=== PATIENT | male | born 1970 | race Caucasian/White ===

== ENCOUNTER 2020-09-12 16:09 | Emergency (ER) | payer MEDICAID, SELFPAY ==
[2020-09-12 16:11] VITALS: BP 148/63; PULSE 93; RESP 18; TEMP 36.7; O2SAT 98; BMI 27.8
== END 2020-09-12 16:53 | disposition left against medical advice (07) ==
LOC: HO.ED 16:53
PROVIDERS: Emergency Provider Emergency Medicine
DX: S99.911A Unspecified injury of right ankle, initial encounter (principal); X50.1XXA Overexertion from prolonged static or awkward postures, initial encounter; Y93.01 Activity, walking, marching and hiking; Y92.414 Local residential or business street as the place of occurrence of the external cause; Y99.9 Unspecified external cause status
CPT/HCPCS: 99282

== ENCOUNTER 2020-10-04 14:05 | Emergency (ER) | payer MEDICAID, SELFPAY ==
--- NOTE | ~2020-10-04 | XR_ITS ---
EXAMINATION: XR ANKLE, RIGHT CLINICAL INFORMATION: Sprain. COMPARISON: None TECHNIQUE: AP, lateral, and mortise views of the right ankle. FINDINGS: There is bimalleolar soft tissue swelling. No visible acute fracture, dislocation or subluxation seen. The ankle mortise and subtalar joints are normal. The soft tissues are normal. There is a small calcaneal heel and retrocalcaneal enthesophyte. XR/XR ankle RT 2V IMPRESSION: Small calcaneal helical and retrocalcaneal enthesophyte. Bimalleolar soft tissue swelling. No visible acute fracture or dislocation seen.
[2020-10-04 14:08] VITALS: BP 144/92; PULSE 111; RESP 20; TEMP 36.6; O2SAT 97; BMI 25.1
--- NOTE | 2020-10-04 16:57 | ED_ITS ---
HPI - Skin/Abscess/Foreign Bdy General Chief complaint: Skin/Abscess/Foreign Body Stated complaint: rash Time Seen by Provider: 10/04/20 15:40 Source: patient Mode of arrival: ambulatory History of Present Illness HPI narrative: 50-year-old male with no significant past medical history presenting to the ED complaining of rash noted to bilateral arms and face x multiple years worsening x1 week. Also reports right ankle pain s/p twisting injury x a few weeks. Reports rash is itchy, painful, cracking/burning. Denies new/recent exposures, new medications, fever, chills, recent travel, tick/insect bites complaint: rash Related Data Previous Rx's Medication Instructions Recorded prednisone 60 mg PO DAILY 10 Days #30 tab 10/04/20 Allergies Allergy/AdvReac Type Severity Reaction Status Date / Time No Known Allergies [NKA] Allergy Unknown NONE Unverified 03/26/20 14:58 Review of Systems Review of Systems: Constitutional: No Fever, No Chills Musculoskeletal: +joint pain, No Myalgias, +Joint Swelling Skin: +rash Neuro: No Weakness, No Numbness, No Paresthesias Yes all other systems are reviewed and are negative [facility] Past Medical History Attestation statement: The following information was validated with the patient. Medical History (Updated 10/04/20 @ 17:00 by CRISTINA Abraham) No known health problems Social History Social History Advance Directives: No Advance Directives Information Provided: No Physical Exam Vital Signs: Vital Signs: Last Vital Signs Temp 97.9 F 10/04/20 14:08 Pulse 111 H 10/04/20 14:08 Resp 20 10/04/20 14:08 BP 144/92 H 10/04/20 14:08 Pulse Ox 97 10/04/20 14:08 Body Mass Index 25.1 Const: General: cooperative and healthy appearing Orientation/consciousness: patient oriented x3 Limitations: no limitations HENMT: Other: No mucous membrane involvement Head: Yes normal to inspection Ears: hearing grossly normal bilaterally General nose exam: Normal external nose present Face and sinus: Yes normal facial exam Mouth: Normal oral and palatal mucosa present Eyes: General: appearance normal, both eyes and all related structures Pupils: Equal, round and reactive pupils present EOM: EOMs intact bilaterally Neck: Neck: Yes normal visual inspection and Yes no meningeal signs Resp: Effort & Inspection: normal respiratory effort Skin: Other: + dry cracked scaly plaque-like rash noted to bilateral upper extremities, neck, ears, and face. No superimposed cellulitis, no fluctuance/induration, no drainage No palm or sole involvement Neuro: General: patient oriented x3 and no meningeal signs Cranial nerves: Yes Equal, round and reactive pupils present Gait exam (Neuro): Normal gait present Extrem: Other: Right ankle with mild swelling, no notable deformity. Tender to palpation. Range of motion/NV intact Course Course Course Narrative: -case discussed with Dr. Barber who also evaluated patient, plan to DC with p.o. prednisone and dermatology follow-up XR ankle RT 2V IMPRESSION: Small calcaneal helical and retrocalcaneal enthesophyte. Bimalleolar soft tissue swelling. No visible acute fracture or dislocation seen. >> patient placed in Aircast. MDM - Skin/Abscess/Foreign Bdy MDM Narrative Medical decision making narrative: 50-year-old male with no significant past medical history presenting to the ED complaining of rash noted to bilateral arms and face x multiple years worsening x1 week. Also reports right ankle pain s/p twisting injury x a few weeks. On exam mildly tachycardic, physical exam as above. Rash consistent with psoriasis/atopic dermatitis. Likely ankle sprain. Rule out fracture Plan: X-rays Discharge Plan Discharge Clinical Impression: Psoriasis Ankle sprain Qualifiers: Encounter type: initial encounter Involved ligament of ankle: unspecified ligament Laterality: right Qualified Code(s): S93.401A - Sprain of unspecified ligament of right ankle, initial encounter Patient Disposition: Home, Self-Care Instructions: Psoriasis (ED) Additional Instructions: You have atopic dermatitis/psoriasis, prednisone is a steroid, take as prescribed It is crucial that you follow-up with a biomedical service engineer as soon as possible, call for next appointment Your ankle x-ray did not show any fracture or dislocation, where air cast as needed for comfort, bear weight as tolerated, ice and elevate her ankle, take Tylenol Motrin for pain If your rash begins to look infected, is red, you have fever, there is drainage from the area return to the ED Prescriptions: New prednisone 20 mg tablet 60 mg PO DAILY 10 Days Qty: 30 RF: 0 Referrals: Leonel Mckeon MD [Physician] - 2 days Genaro Gonzalez MD [Physician] - 2 days Landon Austin MD [Physician] - 2 days Tabitha Mike PA-C [Physician Perinatal Director] - 2 days Edelmira Coelho PA [Physician Perinatal Director] - 2 days Ana Abraham MD [Physician] - 2 days
[2020-10-04] MEDS: predniSONE 20 MG TABLET 60 MG PO (17:01)
== END 2020-10-04 17:20 | disposition home or self-care (01) ==
PROVIDERS: Emergency Provider Emergency Medicine Emergency Medical Services
DX: L40.9 Psoriasis, unspecified (principal); M25.571 Pain in right ankle and joints of right foot; Z79.899 Other long term (current) drug therapy
CPT/HCPCS: 73600; 99283

== ENCOUNTER 2020-10-17 10:57 | Emergency (ER) | payer MEDICAID, SELFPAY ==
[2020-10-17 11:05] VITALS: BP 117/80; PULSE 100; RESP 16; TEMP 36.9; O2SAT 96; BMI 24.3
--- NOTE | 2020-10-17 11:40 | ED.SKABFB ---
HPI - Skin/Abscess/Foreign Bdy General Chief complaint: Skin/Abscess/Foreign Body Stated complaint: rash Time Seen by Provider: 10/17/20 11:13 Source: patient Mode of arrival: ambulatory Limitations: no limitations History of Present Illness HPI narrative: 50 y/o male with history of eczema presenting with severe skin burning, itching and dryness to his bilateral arms, face and ears for the last 1 week. He was recently seen here on 10/04 and prescribed predisone for 10 days. He reports the steroids cleared his skin up but as soon as he stopped taking them, the rash came back and has been worsening. He reports severe burning of his ears with cracked skin and watery discharge. No fever or chills. Related Data Previous Rx's Medication Instructions Recorded prednisone 60 mg PO DAILY 10 Days #30 tab 10/04/20 hydrocortisone 1 appl TOPICAL BID PRN #20 g 10/17/20 prednisone 10 mg PO PER PKG DIR #48 ea 10/17/20 prednisone 60 mg PO DAILY #30 tab 10/17/20 Allergies Allergy/AdvReac Type Severity Reaction Status Date / Time No Known Allergies [NKA] Allergy Unknown NONE Unverified 03/26/20 14:58 [facility] Past Medical History Medical History (Updated 10/17/20 @ 11:57 by CRISTINA Beebe) Acute eczema No known health problems Social History Social History Advance Directives: No Physical Exam Vital Signs: Vital Signs: Last Vital Signs Temp 98.4 F 10/17/20 11:05 Pulse 100 10/17/20 11:05 Resp 16 10/17/20 11:05 BP 117/80 10/17/20 11:05 Pulse Ox 96 10/17/20 11:05 Body Mass Index 24.3 Appearance: Alert. Oriented X3. Appears uncomfortable. HEENT: severe dry, scaly skin all over face and bilateral ears with tenderness, slight yellow crusting no prurulent drainage. CVS: Normal heart rate and rhythm. Pulses normal. Respiratory: No respiratory distress. Lungs CTAB Extremities: bilateral upper extremities with dry, scaly rash to lower arms on dorsal surfaces Neuro: Oriented X 3. No motor deficit. No sensory deficit. Course Course Course Narrative: 50 y/o male presenting with worsening diffuse, dry rash on the extensor surfaces of his arms, face and ears. This is consistent with psoriasis. No evidence of superimposed bacterial infection. He previously responded to prednisone burst but symptoms recurred when steroids finished. Case was d/w Dr. Barber who recommends repeat prednisone burst followed by tapering dose. This was discussed with the patient as well as the importance of follow up with PCP and Derm. He expressed understanding. Stable for d/c. Discharge Plan Discharge Clinical Impression: Psoriasis Patient Disposition: Home, Self-Care Instructions: Psoriasis (ED) Additional Instructions: Take the burst dose of Prednisone 60 mg once per day for the next 10 days - start tomorrow because you were given the 1st dose today in the ED. Once you are done with this, start the Prednisone taper per package instructions to slowly taper down the dose. Use the topical cream as needed for itching and burning. Take Benadryl 25-50 mg every 6 hours as needed for itching. You MUST follow up with a doctor, specifically a Dermatology for further treatment. Call the Radio Operator listed below Monday morning. Call the Primary Care doctor provided to you to arrange an appointement. If you have worsening symptoms or develop a fever come back to the ER for futher evaluation. Prescriptions: New prednisone 20 mg tablet 60 mg PO DAILY Qty: 30 RF: 0 prednisone 10 mg tablets,dose pack 10 mg PO PER PKG DIR Qty: 48 RF: 0 hydrocortisone 2.5 % ointment 1 appl topical BID PRN (Reason: itching) Qty: 20 RF: 3 No Action prednisone 20 mg tablet 60 mg PO DAILY 10 Days Qty: 30 RF: 0 Referrals: Tabitha Mike PA-C [Physician Shot Core Drill Operator Helper] - 2 days (severe psoriasis )
[2020-10-17] MEDS: predniSONE 20 MG TABLET 60 MG PO (12:01)
[2020-10-17] MEDS: diphenhydrAMINE HCL 25 MG TABLET PO (12:01)
[2020-10-17] MEDS: Hydrocortisone 1 % Ointment 28.35 GM TUBE 1 APPL TOPICAL (12:42)
== END 2020-10-17 12:46 | disposition home or self-care (01) ==
PROVIDERS: Emergency Provider Emergency Medicine Emergency Medical Services
DX: L40.9 Psoriasis, unspecified (principal)
CPT/HCPCS: 99283; Q0163

== ENCOUNTER 2020-11-19 18:46 | Emergency (ER) | payer MEDICAID, SELFPAY | END 2020-11-19 21:10 | disposition left against medical advice (07) | PROVIDERS: Emergency Provider Emergency Medicine | DX: S99.919A Unspecified injury of unspecified ankle, initial encounter (principal); X58.XXXA Exposure to other specified factors, initial encounter; Y93.9 Activity, unspecified; Y92.9 Unspecified place or not applicable; Y99.9 Unspecified external cause status ==

== ENCOUNTER 2020-11-29 22:24 | Emergency (ER) | payer MEDICAID, SELFPAY ==
[2020-11-29 22:57] VITALS: BP 145/95; PULSE 113; RESP 16; TEMP 36.7; O2SAT 94; BMI 26.6
== END 2020-11-30 01:01 | disposition left against medical advice (07) ==
PROVIDERS: Emergency Provider Emergency Medicine
DX: R22.43 Localized swelling, mass and lump, lower limb, bilateral (principal)
CPT/HCPCS: 99281; 99282

== ENCOUNTER 2021-02-18 12:11 | Emergency (ER) | payer MEDICAID, SELFPAY ==
[2021-02-18 12:12] VITALS: BP 121/86; PULSE 98; RESP 16; TEMP 36.7; O2SAT 95; BMI 23.7
--- NOTE | 2021-02-18 13:55 | ED_ITS ---
HPI - Skin/Abscess/Foreign Bdy General Chief complaint: Skin/Abscess/Foreign Body Stated complaint: med refill Time Seen by Provider: 02/18/21 13:44 Source: patient Mode of arrival: ambulatory Limitations: no limitations History of Present Illness HPI narrative: 50-year-old male with a past medical history of psoriasis here with complaints of psoriasis flare with worsening rash and itching since yesterday. Patient tells me he did a prednisone taper starting February 02 and had significant improvement with this. He has an upcoming appointment with his primary care doctor on March 05. He is hoping to get a referral to see a security consultant. No fevers, chills, redness or drainage. Related Data Previous Rx's Medication Instructions Recorded hydrocortisone 2.5 % topical 1 appl TOPICAL BID PRN #20 g 10/17/20 ointment prednisone 10 mg tablets in a dose 10 mg PO PER PKG DIR #48 ea 10/17/20 pack prednisone 20 mg tablet 60 mg PO DAILY #30 tab 10/17/20 prednisone 20 mg tablet 20 mg PO DAILY #20 tab 12/02/20 cephalexin 500 mg capsule 500 mg PO QID 7 Days #28 cap 02/02/21 prednisone 10 mg tablet 10 mg PO .COMPLEX #45 tab 02/02/21 prednisone 20 mg tablet 60 mg PO DAILY 10 Days #30 tab 02/02/21 prednisone 10 mg tablets in a dose See Taper PO PER PKG DIR #30 ea 02/18/21 pack Allergies Allergy/AdvReac Type Severity Reaction Status Date / Time No Known Allergies [NKA] Allergy Unknown NONE Verified 12/02/20 13:39 Review of Systems Review of Systems: Yes all other systems are reviewed and are negative Constitutional: Constitutional: Reports no additional constitutional complaints, Denies body ache(s), Denies chills, Denies fever(s), Denies headache(s) and Denies weakness Eyes: Eyes: Reports no additional eye complaints and Denies change in vision ENT: Reports system reviewed and no additional complaints, except as documented, Denies dizziness, Denies headache(s), Denies nasal congestion, Denies nasal discharge and Denies neck pain Cardiovascular: Cardiovascular: Reports no additional cardiovascular complaint s, Denies chest pain, Denies leg edema and Denies dyspnea Respiratory: Respiratory: Reports no additional respiratory complaints, Denies cough and Denies dyspnea Gastrointestinal: Gastrointestinal: Reports no additional gastrointestinal complaints, Denies abdominal pain, Denies diarrhea, Denies nausea and Denies vomiting Genitourinary: Genitourinary: Denies urinary incontinence Musculoskeletal: Musculoskeletal: Reports no additional musculoskeletal complaints, Denies back pain, Denies arthralgias, Denies joint swelling, Denies neck pain, Denies numbness and Denies tingling Integumentary/Breasts: Skin/Breast: Reports system reviewed and no additional complaints, except as docu and Reports rash Neurologic: Reports system reviewed and no additional complaints, except as documented, Denies Abnormal speech present, Denies dizziness, Denies headache(s), Denies numbness, Denies tingling and Denies weakness PMFSH Past Medical History Attestation statement: The following information was validated with the patient. Source: old records reviewed and nursing notes reviewed Medical History Acute eczema No known health problems Psoriasis Surgical History No pertinent past surgical history Family History Family History Mother No problems noted. Father No problems noted. Social History Social History Alcohol intake: current Alcohol intake frequency: a few times a week Patient Tobacco Use Status: Current everyday Tobacco user Tobacco use type: Cigarette Cigarettes Per Day: 20 Years Smoked: 20 Second Hand Smoke Exposure: Yes Advance Directives: No Advance Directives Information Provided: Yes Physical Exam Vital Signs: Vital Signs: Last Vital Signs Temp 98.0 F 02/18/21 12:12 Pulse 98 02/18/21 12:12 Resp 16 02/18/21 12:12 BP 121/86 02/18/21 12:12 Pulse Ox 95 02/18/21 12:12 Body Mass Index 23.7 Const: General: cooperative, healthy appearing, comfortable and no acute distress Orientation/consciousness: patient oriented x3 Limitations: no limitations HENMT: Head: Yes normal to inspection Ears: hearing grossly normal bilaterally General nose exam: Normal external nose present Face and sinus: Yes normal facial exam Mouth: Normal oral and palatal mucosa present Throat: Yes posterior oropharynx normal Eyes: General: appearance normal, both eyes and all related structures Pupils: Equal, round and reactive pupils present Neck: Neck: Yes normal visual inspection Chest: Chest palpation & inspection: normal inspection of the chest Resp: Effort & Inspection: normal respiratory effort Auscultation: clear to auscultation bilaterally Cardio: Rate: regular rate Rhythm: regular rhythm Peripheral pulses: Peripheral pulses 2+ throughout GI: Inspection: Yes normal to inspection Palpation (GI): Soft to palpation and nontender Auscultation: normal bowel sounds Back/Spine/Pelvis: Thoracic/Lumbar Spine: thoracic and lumbar spine normal to inspection Skin: Other: Scaling plaque like lesions noted over the upper extremities over the extensor surfaces and over the dorsal forearms. Similar appearing rash on the feet. General skin exam: no rashes or lesions noted Neuro: General: patient oriented x3, no focal motor deficits and normal sensation to monofilament Cranial nerves: Yes Equal, round and reactive pupils present Cognition (Neuro): normal cognition Speech: No Abnormal speech present Gait exam (Neuro): Normal gait present Motor exam (neuro): 5/5 motor strength present throughout Extrem: General: Yes normal to inspection Course Course Course Narrative: 50-year-old male here with a psoriasis flare. Has improved with prednisone passed is requesting this. Upcoming appointment with his primary care doctor and is hoping to get a Dermatology referral. . His insurance requires one. Will give brief prednisone course. Recommended topical the patient declined. Reviewed worrisome signs and symptoms of when to return to the emergency department. Comfortable discharge home. MDM - Skin/Abscess/Foreign Bdy Medical Records Attestation: I reviewed the patient's medical records. Lab Data Attestation: I reviewed the patient's lab results. Discharge Plan Discharge Clinical Impression: Psoriasis Patient Disposition: Home, Self-Care Instructions: Psoriasis (ED) Additional Instructions: Keep appt for PCP 03/05 Prescriptions: New prednisone 10 mg tablets,dose pack See Taper mg PO PER PKG DIR Qty: 30 RF: 0 No Action prednisone 20 mg tablet 60 mg PO DAILY Qty: 30 RF: 0 prednisone 10 mg tablets,dose pack 10 mg PO PER PKG DIR Qty: 48 RF: 0 hydrocortisone 2.5 % ointment 1 appl topical BID PRN (Reason: itching) Qty: 20 RF: 3 prednisone 20 mg tablet 20 mg PO DAILY Qty: 20 RF: 0 prednisone 20 mg tablet 60 mg PO DAILY 10 Days Qty: 30 RF: 0 cephalexin 500 mg capsule 500 mg PO QID 7 Days Qty: 28 RF: 0 prednisone 10 mg tablet 10 mg PO .COMPLEX Qty: 45 RF: 0 Referrals: Physician,Unknown [Primary Care Provider] - 2 days Interventions: ED Discharge Assessment Last Done: 02/18/21 14:01 Discharge Date/Time: 02/18/21 14:02
== END 2021-02-18 14:02 | disposition home or self-care (01) ==
PROVIDERS: Emergency Provider Emergency Medicine
DX: L40.9 Psoriasis, unspecified (principal); F17.210 Nicotine dependence, cigarettes, uncomplicated
CPT/HCPCS: 99283

== ENCOUNTER 2021-04-15 08:15 | Outpatient (REF) | payer MEDICAID, SELFPAY ==
[2021-04-15 08:41] LABS: MANUAL DIFF FLAG NO
[2021-04-15 08:56] LABS: Basophils Absolute Auto 0.1 X10*3/uL (0.0-0.2); Basophils Percent Auto 0.5 % (0-2); Eosinophils Absolute Auto 0.4 X10*3/uL (0.0-0.4); Hematocrit 43.7 % (42-52); Imm Gran Abs Auto 0.04 X10*3/uL (0.00-0.03); Imm Gran Pct Auto 0.4 % (0.0-0.4); Lymphocytes Percent Auto 18.8 % (20-40); Mean Corpuscular Hemoglobin 32.4 pg (27.0-33.0); Mean Corpuscular Volume 101.2 fL (80-98); Mean Platelet Volume 9.4 fL (9.4-12.4); Monocytes Percent Auto 9.1 % (2-11); Neutrophils Absolute Auto 7.1 X10*3/uL (2.0-8.3); Neutrophils Percent Auto 67.2 % (45-73); Platelet Count 301 X10*3/uL (160-400); Red Blood Count 4.32 X10*6/uL (4.60-5.80); Red Cell Distribution Width 15.3 % (11.0-16.0); White Blood Count 10.6 X10*3/uL (4.8-10.8)
[2021-04-15 09:22] LABS: Alanine Aminotransferase 10 U/L (0-40); Albumin Level 3.8 g/dL (3.5-5.0); Alkaline Phosphatase 111 U/L (39-117); Anion Gap 10 (12-20); Aspartate Amino Transferase 12 U/L (5-37); Bilirubin Total 0.6 mg/dL (0.0-1.0); Blood Urea Nitrogen 8 mg/dL (9-16); Calcium 9.3 mg/dL (8.4-10.2); Carbon Dioxide 31 mmol/L (22-29); Chloride 105 mmol/L (96-108); Cholesterol 147 mg/dL; Estimated Glomerular Filt Rate > 60; Glucose Fasting 126 mg/dL (60-99); HDL Cholesterol 24 mg/dL; LDL Cholesterol Calculated 90 mg/dl; Potassium 4.9 mmol/L (3.3-5.1); Sodium 141 mmol/L (135-145); Total Protein 6.6 g/dL (6.5-8.0); Triglycerides 168 mg/dL
== END 2021-04-15 08:16 | disposition home or self-care (01) ==
LOC: HO.LAB 08:15
PROVIDERS: PCP Internal Medicine; Visit Provider Internal Medicine
DX: Z00.00 Encounter for general adult medical examination without abnormal findings (principal); E11.9 Type 2 diabetes mellitus without complications
CPT/HCPCS: 36415; 80053; 80061; 85025

== ENCOUNTER 2023-03-03 10:22 | Outpatient (AMB) | payer OTHER, SELFPAY ==
--- NOTE | 2023-03-03 10:25 | MHC.PC.OV ---
Vital Signs 03/03/23 10:27 Height 5 ft 11 in Weight 207 lb 3.752 oz BMI 28.9 BP 110/78 Blood Pressure Location Lt brachial Position Sitting Pulse 97 Pulse Source Pulse Oximeter Pulse Oximetry (%) 96 Oxygen Delivery Method Room Air Intake Visit Reasons: Rash on both arms/hands Intake Note: Patient is here today for rash on both arms and fingers Business Analyst Project Manager Required: No Special Deputy Sheriff: Not Required per policy Accompanied by: Self / Same As Patient Allergies No Known Allergies [NKA] Allergy (Unknown, Verified 03/03/23 10:27) NONE Tobacco use date assessed: 03/03/23 Dental Screening Dental Screen Date: 03/03/23 Did you have a dental visit in the last 12 months?: No Did you have a dental problem in the last 6 months where you did not have access to dental care?: No Was dental information given to patient?: No HPI Rash on both arms/hands HPI Details recurrent hand dermatitis PFSH Medical History (Updated 01/25/22 @ 10:18 by Wade Johnston MD) Acute eczema No known health problems Psoriasis Surgical History (Updated 03/03/23 @ 10:32 by DIANA Sal) History of foot surgery No pertinent past surgical history Family History Mother No problems noted. Father No problems noted. Social History (Updated 03/03/23 @ 10:33 by DIANA Sal) Housing: House (Living with his brother) Alcohol intake: current Alcohol intake frequency: does not drink Patient Tobacco Use Status: Current everyday Tobacco user Tobacco use type: Cigarette Cigarette Packs Per Day: 0.5 Cigarettes Per Day: 10 Years Smoked: 20 e-Cigarette/Vaping Use: Never Used Second Hand Smoke Exposure: Yes service: No Current occupational status: unemployed Cognitive needs: Yes (croches) Hearing needs: No Vision needs: Yes (reading glasses) Questionnaire PHQ-9 Over the last 2 weeks, how often have you been bothered by any of the following problems? 1. Little interest or pleasure in doing things: several days 2. Feeling down, depressed, or hopeless: several days 3. Trouble falling or staying asleep, or sleeping too much: nearly every day 4. Feeling tired or having little energy: nearly every day 5. Poor appetite or overeating: not at all 6. Feeling bad about yourself - or that you are a failure or have let yourself or your family down: not at all 7. Trouble concentrating on things, such as reading the newspaper or watching television: not at all 8. Moving or speaking so slowly that other people could have noticed. Or the opposite - being so fidgety or restless that you have been moving around a lot more than usual: not at all 9. Thoughts that you would be better off or of hurting yourself in some way: not at all Total score: 8 Source: Developed by Drs. Agapito Emery, Tammy Kang, Ervin Thompson and colleagues, with an educational cherri from [employer]. Thrive Questionnaire Date Thrive assessed: 03/03/23 I am a: Patient What is your living situation today?: I have a steady place to live Within the past 12 months, did the food you bought not last and you didn't have the money to get more?: Never true Within the past 12 months, did you worry whether your food would run out before you got money to buy more?: Never true Do you have trouble paying for medicines?: Yes Do you have trouble getting transportation to medical appointments?: No Do you have trouble paying your heating and electricity bill?: No Do you have trouble taking care of your child, family member or friend?: No Do you have trouble with day-to-day activities such as bathing, preparing meals, shopping, managing finances, etc.?: No Are you currently unemployed and looking for a job?: No Are you interested in more education?: No Please select the resources that you would like help with: Paying for medicine AUDIT C Alcohol Use Questionnaire (AUDIT-C) 1. How often do you have a drink containing alcohol?: Never 2. How many drinks containing alcohol do you have on a typical day when you are drinking?: 1 or 2 Total Score: 0 DEDRICK-7 AMB Questionnaire DEDRICK-7 Date DEDRICK - 7 assessed: 03/03/23 Feeling nervous, anxious, or on edge: 2 = More than half the days Not being able to stop or control worryin = Not at all Worrying too much about different things: 0 = Not at all Trouble relaxin = Several days Being so restless that it is hard to sit still: 3 = Nearly every day Becoming easily annoyed or irritable: 0 = Not at all Feeling afraid as if something awful might happen: 0 = Not at all Total DEDRICK-7 score (0-4 normal; 5-9 mild; 10-14 moderate; 15-21 severe): 6 Source: Developed by Drs. Agapito Emery, Tammy Kang, Ervin Thompson and colleagues, with an educational cherri from [employer]. Review of Systems Const Denies chills, Denies headache(s) and Denies weight loss ENT Denies headache(s) Card Denies chest pain, Denies syncope, Denies irregular heart rhythm and Denies dyspnea Resp Denies chest congestion, Denies cough and Denies dyspnea GI Denies abdominal pain, Denies change in stool character, Denies nausea and Denies vomiting Musc Denies deformity and Denies joint swelling Neuro Denies syncope and Denies headache(s) Physical exam (Primary Care) Vital Signs: Last Vital Signs Pulse 97 03/03/23 10:27 BP 110/78 03/03/23 10:27 Pulse Ox 96 03/03/23 10:27 Oxygen Delivery Method Room Air 03/03/23 10:27 BMI result Body Mass Index 28.9 Tobacco/Smoking Status: Tobacco use Status Tobacco use date assessed 03/03/23 03/03/23 10:36 Patient Tobacco Use Status Current everyday Tobacco 03/03/23 10:36 Tobacco use type Cigarette 03/03/23 10:36 e-Cigarette/Vaping Use Never Used 03/03/23 10:36 PHQ-9: PHQ-9 Score PHQ-9: Total score 8 03/03/23 10:36 Thrive Assessment: Date of Thrive Assessment Date Thrive assessed 03/03/23 03/03/23 10:36 Const General: cooperative, comfortable and no acute distress HENMT Head: Yes normal to inspection Eyes General: appearance normal, both eyes and all related structures Neck Neck: Yes normal visual inspection Skin Other: bilat hand dermatitis Assessment and Plan Assessment & Plan (1) Hand dermatitis: Code(s): L30.9 - Dermatitis, unspecified Plan: refill rx Medications: Changed From betamethasone dipropionate 0.05% topical BID PRN To betamethasone dipropionate 0.05% 1 appl topical BID PRN 45 grams 2RF rash Coding Level of Care Code Est Pt Level 3 (34244) Diagnoses Hand dermatitis L30.9
[2023-03-03 10:27] VITALS: BP 110/78; PULSE 97; O2SAT 96; BMI 28.9
== END 2023-03-03 11:12 | disposition home or self-care (01) ==
PROVIDERS: PCP Internal Medicine; Visit Provider Internal Medicine
DX: L30.9 Dermatitis, unspecified (principal)
CPT/HCPCS: 99213

== ENCOUNTER 2024-10-29 11:25 | Outpatient (AMB) | payer OTHER, SELFPAY ==
[2024-10-29 11:29] VITALS: BP 120/84; PULSE 92; RESP 14; TEMP 36.9; O2SAT 97; BMI 26.7
--- NOTE | 2024-10-29 11:29 | MHC.PC.OV ---
Vital Signs 10/29/24 11:29 Height 5 ft 11 in Weight 191 lb 3.2 oz BMI 26.7 BP 120/84 Blood Pressure Location Lt brachial Position Sitting Respiration 14 Pulse 92 Pulse Source Pulse Oximeter Temp 98.5 F Temp Source Oral Pulse Oximetry (%) 97 Oxygen Delivery Method Room Air Intake Visit Reasons: annual exam/humza DR Johnston Information Systems Administrator Required: No Accompanied by: Self / Same As Patient Allergies No Known Allergies [NKA] Allergy (Unknown, Verified 10/29/24 11:43) NONE Medication List - Last Reconciled 10/29/24 by CHRISTY Smith methadone 10 mg PO DAILY Tobacco use date assessed: 10/29/24 Dental Screening Dental Screen Date: 10/29/24 Did you have a dental visit in the last 12 months?: No Did you have a dental problem in the last 6 months where you did not have access to dental care?: No Was dental information given to patient?: No HPI annual exam/humza DR Johnston HPI Details The patient is here for annual physical visit and to transition care from Dr. 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 The knee pain began approximately six to seven months ago after using a cane to support a previously injured ankle, leading to increased strain on the left knee. The pain and swelling of the knee have progressively worsened, severely impacting the patient's mobility and daily activities. Initial follow-up was delayed due to the prison of the previous physician, resulting in the current assessment being postponed for four months. The patient identifies worsening pain with continuous usage of the knee. The patient also experiences recurrent psoriasis, notably on the left elbow, hands, and occasionally the face. The condition is exacerbated by heat exposure. Additionally, there is a report of shortness of breath correlated with decreased physical activity due to knee immobility. The patient continues to smoke tobacco despite efforts to reduce consumption. There are no other reported respiratory conditions, except for some morning coughing up secretion stuck in throat likely related to smoking. The patient is a candidate for lung screening-will refer him to Thoracic. [facility] Medical History (Updated 10/29/24 @ 23:19 by CHRISTY Smith) Psoriasis Acute eczema No known health problems Surgical History History of foot surgery Family History Mother No problems noted. Father No problems noted. Social History Housing: House Alcohol intake: current Alcohol intake frequency: does not drink Patient Tobacco Use Status: Current everyday Tobacco user Tobacco use type: Cigarette Cigarette Packs Per Day: 0.5 Cigarettes Per Day: 10 Years Smoked: 20 e-Cigarette/Vaping Use: Never Used Second Hand Smoke Exposure: Yes service: No Current occupational status: disabled Cognitive needs: Yes (croches) Hearing needs: No Vision needs: Yes (Reading glasses) Questionnaire PHQ-9 Over the last 2 weeks, how often have you been bothered by any of the following problems? 1. Little interest or pleasure in doing things: not at all 2. Feeling down, depressed, or hopeless: several days 3. Trouble falling or staying asleep, or sleeping too much: not at all 4. Feeling tired or having little energy: several days 5. Poor appetite or overeating: several days 6. Feeling bad about yourself - or that you are a failure or have let yourself or your family down: not at all 7. Trouble concentrating on things, such as reading the newspaper or watching television: not at all 8. Moving or speaking so slowly that other people could have noticed. Or the opposite - being so fidgety or restless that you have been moving around a lot more than usual: not at all 9. Thoughts that you would be better off or of hurting yourself in some way: not at all Total score: 3 Depression Screening Interpretation: Negative Depression Screening Done: Yes 82128 - PHQ-9 Billing: Yes Source: Developed by Tammy Moses.W. Jorge Luis, Ervin Thompson and colleagues, with an educational cherri from [employer]. Thrive Questionnaire Date Thrive assessed: 10/29/24 I am a: Patient What is your living situation today?: I have a steady place to live Within the past 12 months, did the food you bought not last and you didn't have the money to get more?: Never true Within the past 12 months, did you worry whether your food would run out before you got money to buy more?: Never true Do you have trouble paying for medicines?: No Do you have trouble getting transportation to medical appointments?: Yes Do you have trouble paying your heating and electricity bill?: No Do you have trouble taking care of your child, family member or friend?: No Do you have trouble with day-to-day activities such as bathing, preparing meals, shopping, managing finances, etc.?: No Are you currently unemployed and looking for a job?: Yes Are you interested in more education?: No Please select the resources that you would like help with: None Currently or been in a relationship where the following occur: No concerns reported THRIVE Score: 1 AUDIT C Alcohol Use Questionnaire (AUDIT-C) 1. How often do you have a drink containing alcohol?: Monthly or less (Rarely) 2. How many drinks containing alcohol do you have on a typical day when you are drinking?: 1 or 2 3. How often do you have six or more drinks on one occasion?: Never Total Score: 1 Score Reviewed/Action Taken: No DEDRICK-7 AMB Questionnaire DEDRICK-7 Date DEDRICK - 7 assessed: 10/29/24 Feeling nervous, anxious, or on edge: 0 = Not at all Not being able to stop or control worryin = Not at all Worrying too much about different things: 0 = Not at all Trouble relaxin = Not at all Being so restless that it is hard to sit still: 0 = Not at all Becoming easily annoyed or irritable: 0 = Not at all Feeling afraid as if something awful might happen: 0 = Not at all Total DEDRICK-7 score (0-4 normal; 5-9 mild; 10-14 moderate; 15-21 severe): 0 Source: Developed by Tammy Moses, Ervin Postnke and colleagues, with an educational cherri from [employer]. DEDRICK-7 Assessment Billing DEDRICK-7 Assessment Tool: DEDRICK-7 Assessment 95740 Review of Systems Const Details: - Musculoskeletal: Reports left knee pain and swelling. - Skin: Reports history of psoriasis, mainly on the left elbow, hands, and face. - Respiratory: Reports shortness of breath with activity, denies wheezing or persistent cough. - General Health: Denies recent blood work or health maintenance exams. Denies headache(s) Eyes Denies loss of vision ENT Denies vertigo, Denies dizziness, Denies headache(s) and Denies sore throat Card Denies chest pain, Denies leg edema, Denies lightheadedness and Reports dyspnea on exertion Resp Reports cough (mornings (expectoration of greyish secretion from the back of throat)), Denies hemoptysis, Reports dyspnea on exertion and Denies wheezing GI Denies abdominal pain, Denies melena, Denies constipation, Denies diarrhea and Denies vomiting Denies dysuria, Denies urinary frequency and Denies urinary urgency Musc Reports arthralgias (left knee), Reports joint swelling (left knee), Denies numbness and Denies tingling Skin/Breast Reports lesions (psoriasis patches to elbows) Neuro Denies Abnormal speech present, Denies behavioral changes, Denies vertigo, Denies dizziness, Denies headache(s), Denies loss of vision, Denies memory loss, Denies numbness and Denies tingling Psych Denies anxiety, Denies behavioral changes, Denies depression, Denies memory loss and Denies panic attacks Atilio/Lymph Denies easy bleeding and Denies easy bruising Aller/Immun Denies wheezing Physical exam (Primary Care) Vital Signs: Last Vital Signs Temp 98.5 F 10/29/24 11:29 Pulse 92 10/29/24 11:29 Resp 14 10/29/24 11:29 BP 120/84 10/29/24 11:29 Pulse Ox 97 10/29/24 11:29 Oxygen Delivery Method Room Air 10/29/24 11:29 BMI result Body Mass Index 26.7 Tobacco/Smoking Status: Tobacco use Status Tobacco use date assessed 10/29/24 10/29/24 11:40 Patient Tobacco Use Status Current everyday Tobacco 10/29/24 11:40 Tobacco use type Cigarette 10/29/24 11:40 e-Cigarette/Vaping Use Never Used 10/29/24 11:40 PHQ-9: PHQ-9 Score PHQ-9: Total score 3 10/29/24 22:41 Depression Screening Interpretation: Negative Thrive Assessment: Date of Thrive Assessment Date Thrive assessed 10/29/24 10/29/24 11:40 Currently or been in a relationship where the following occur: No concerns reported Const General: healthy appearing, no acute distress, alert and awake Nutritional Appearance: well nourished Orientation/consciousness: oriented to person, oriented to place and oriented to time HENMT Ears: TM's normal bilaterally General nose exam: Normal nasal mucous membranes and turbinates present Eyes Conjunctivae: conjunctivae normal Sclerae: sclerae normal Pupils: Equal, round and reactive pupils present Neck Neck: Yes no lymphadenopathy and Yes no JVD Thyroid: Thyroid normal Carotids: no bruits Resp Effort & Inspection: normal respiratory effort and not tachypneic Auscultation: no crackles, no rales, no rhonchi and no wheezes Cardio Rate: regular rate Rhythm: regular rhythm Heart sounds: no murmurs and normal S1 and S2 GI Palpation (GI): Soft to palpation, nontender, no hepatomegaly and no splenomegaly Auscultation: normal bowel sounds Back/Spine/Pelvis Thoracic/Lumbar Spine: No lumbar spinal tenderness Skin General skin exam: dry skin Lesions: lesion noted patch bilateral elbow Neuro General: oriented to person, oriented to place and oriented to time Cranial nerves: Yes Equal, round and reactive pupils present Speech: No Abnormal speech present Gait exam (Neuro): Normal gait present Motor exam (neuro): no tremor noted Extrem Right upper extremity: full ROM Left upper extremity: full ROM Right lower extremity: full ROM; no edema Left lower extremity: full ROM and knee (+omkar's test) Details: tenderness and swelling; no edema Psych Mental Status: mental status grossly normal Speech and movement: Normal speech and movement present Affect: normal affect Attitude: cooperative Thought process: Normal thought process present Coding Level of Care Code Est Pt Prev Care 40-64y(16745) Diagnoses Annual physical exam Z00.00 Acute pain of left knee M25.562 Chronicity: acute Psoriasis L40.9 Abnormal glucose level R73.09 Additional Codes DEDRICK-7 Assessment Billing - DEDRICK-7 Assessment Tool: DEDRICK-7 Assessment 16060 ([id number]) PHQ-9 - 23092 - PHQ-9 Billing: Yes ([id number]) Time Spent (min) 42 Assessment & Plan Assessment & Plan (1) Annual physical exam: Code(s): Z00.00 - Encounter for general adult medical examination without abnormal findings Category: Medical (2) Left knee pain: Code(s): M25.562 - Pain in left knee Category: Medical Qualifiers: Chronicity: acute Qualified Code(s): M25.562 - Pain in left knee (3) Psoriasis: Code(s): L40.9 - Psoriasis, unspecified Category: Medical (4) Abnormal glucose level: Code(s): R73.09 - Other abnormal glucose Category: Medical Plan I will initiate with a left knee x-ray to evaluate the injury, followed by an MRI contingent upon x-ray findings. Blood work will be ordered to assess overall health, including lipid profiles and glucose levels. The patient will be encouraged to maintain the use of a knee brace for support. Potential further diagnostic imaging for lung screening may be considered due to smoking history. I plan to continue managing the patient's psoriasis as needed and provide further support for smoking cessation in upcoming visits. Patient was informed and verbally consented to the use of an ambient scribe for clinic note documentation during this visit. Orders: Orders Complete Blood Count Auto Diff 10/29/24 M25.462 - Effusion, left knee, M25.562 - Pain in left knee, Z00.00 - Encounter for general adult medical examination without abnormal findings [facility] [place]. Panel Fast 10/29/24 M25.462 - Effusion, left knee, M25.562 - Pain in left knee, Z00.00 - Encounter for general adult medical examination without abnormal findings Vitamin D 25-OH Total 10/29/24 M25.462 - Effusion, left knee, M25.562 - Pain in left knee, Z00.00 - Encounter for general adult medical examination without abnormal findings TSH reflex Free T4 10/29/24 M25.462 - Effusion, left knee, M25.562 - Pain in left knee, Z00.00 - Encounter for general adult medical examination without abnormal findings Lipid Panel 10/29/24 M25.462 - Effusion, left knee, M25.562 - Pain in left knee, Z00.00 - Encounter for general adult medical examination without abnormal findings B Type Natriuretic Peptide 10/29/24 M25.462 - Effusion, left knee, Z00.00 - Encounter for general adult medical examination without abnormal findings Hemoglobin A1c 10/29/24 R73.09 - Other abnormal glucose, Z00.00 - Encounter for general adult medical examination without abnormal findings Glucose Fasting 10/29/24 M25.462 - Effusion, left knee, M25.562 - Pain in left knee, Z00.00 - Encounter for general adult medical examination without abnormal findings UA CC w/rflx Micro + Cult 10/29/24 M25.462 - Effusion, left knee, M25.562 - Pain in left knee, Z00.00 - Encounter for general adult medical examination without abnormal findings XR knee LT 3V 10/29/24 M25.462 - Effusion, left knee, M25.562 - Pain in left knee Referrals Thoracic/General Surgery Referral Z12.2 - Encounter for screening for malignant neoplasm of respiratory organs Patient Instructions: - Wear your knee brace consistently to support your left knee. - Get an x-ray of your left knee as soon as possible at the designated facility. - Schedule and complete fasting lab tests at your earliest convenience. - Reduce smoking further and explore smoking cessation resources for better overall health. - Follow up with any new symptoms or exacerbations immediately. - Continue daily activities without overexerting your knee.
== END 2024-10-29 12:06 | disposition home or self-care (01) ==
LOC: HO.HMCH 11:26
PROVIDERS: PCP Internal Medicine
DX: Z00.00 Encounter for general adult medical examination without abnormal findings (principal); M25.562 Pain in left knee; L40.9 Psoriasis, unspecified; R73.09 Other abnormal glucose

== ENCOUNTER → 2024-10-29 11:25 | Outpatient (BNVA) | payer OTHER, SELFPAY | PROVIDERS: PCP Internal Medicine | DX: Z00.00 Encounter for general adult medical examination without abnormal findings (principal); M25.562 Pain in left knee; L40.9 Psoriasis, unspecified; R73.09 Other abnormal glucose | CPT/HCPCS: 96127; 99396 ==

== ENCOUNTER 2024-12-03 13:39 | Outpatient (REF) | payer OTHER, SELFPAY ==
--- NOTE | ~2024-12-03 | XR_ITS ---
CLINICAL HISTORY: M25.562 - Pain in left knee 3 views left knee Comparison: None Findings: There is advanced degenerative narrowing of the medial femorotibial joint space with osteonecrosis and reactive bone formation. There is [id number] with breakdown and depression of medial tibial plateau . Subcortical degenerative intrusion cysts are present on both sides of the medial compartment of the joint. The patella is in satisfactory alignment but tilting toward the lateral femoral condyle No radiopaque foreign body Impression: Advanced chronic osteoarthritis with breakdown and remodeling and depression of the medial tibial plateau, with signs of osteonecrosis. This may be related to an old non healed fracture of the medial tibial plateau. Fragmented medial joint margin calcifications are present in the soft tissues . The lateral femorotibial joint space distance is normal. This document has been electronically signed by: Josh Parks MD on 12/04/2024 15:17:27
== END 2024-12-03 13:40 | disposition home or self-care (01) ==
LOC: HO.XRAY 13:39
DX: M25.562 Pain in left knee (principal); M25.462 Effusion, left knee
CPT/HCPCS: 73562

== ENCOUNTER → 2024-12-03 13:45 | Outpatient (BNV) | payer OTHER, SELFPAY | PROVIDERS: Visit Provider Radiology Diagnostic Radiology | DX: M87.852 Other osteonecrosis, left femur (principal) | CPT/HCPCS: 73562 ==

== ENCOUNTER 2024-12-27 10:16 | Outpatient (AMB) | payer OTHER, SELFPAY ==
--- NOTE | 2024-12-27 07:49 | MHC.OFFVIS ---
Intake Visit Reasons: Current Smoker Allergies No Known Allergies (NKA) Allergy (Unknown, Verified 10/29/24 11:43) NONE HPI HPI Current Smoker: Details: Initial visit for this 54yo smoker with a 20PYH. Patient started smoking at age 14 for 40 years at 1/2ppd. . Reports marijuana use. 1-2 x a day. Denies second hand smoke exposure. 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 . Denies known family history of lung cancer. Denies personal history of cancers. Denies chest CT in last year. . Denies recent travel outside the [place]. Denies recent respiratory illness or recent hospitalization for respiratory issues. Denies testing positive for COVID. Denies receiving COVID Vaccine. . Denies fever, chills, new/worsening cough, hemoptysis, hoarseness or dysphagia. Denies significant chest pain, significant dyspnea or unintentional weight loss. Patient Lung Cancer Screening Questionnaire reviewed with patient by provider. . Shared Decision Making Completed. Patient meets criteria. Discussed in detail with patient, the risk vs benefit of LDCT screening. Patient consents to proceed with scan. Discussed smoking cessation. [facility] Medical History (Updated 12/27/24 @ 10:23 by Kristi Villarreal PA-C) Nicotine dependence, cigarettes, uncomplicated Psoriasis Acute eczema Surgical History (Updated 12/27/24 @ 10:26 by Kristi Villarreal PA-C) History of foot surgery Family History Mother No problems noted. Father No problems noted. Social History (Updated 12/27/24 @ 10:23 by Kristi Villarreal PA-C) Housing: House Alcohol intake: current Alcohol intake frequency: does not drink Patient Tobacco Use Status: Current everyday Tobacco user Tobacco use type: Cigarette Cigarette Packs Per Day: 0.5 Cigarettes Per Day: 10 Years Smoked: (onset 14yo, 1/2ppd x 40yrs, 20pyh) e-Cigarette/Vaping Use: Never Used Second Hand Smoke Exposure: Yes service: No Current occupational status: disabled Cognitive needs: Yes (croches) Hearing needs: No Vision needs: Yes (Reading glasses) Assessment & Plan Assessment & Plan (1) Nicotine dependence, cigarettes, uncomplicated: Comment: (onset 14yo, 1/2ppd x 40yrs, 20pyh) Code(s): F17.210 - Nicotine dependence, cigarettes, uncomplicated Category: Medical Plan: - SDM visit completed today in office. - Patient meets criteria for LDCT for lung cancer screening purposes and is asymptomatic. - Smoking cessation counseling offered. Patients can always call [phone]. - Will arrange for a LDCT scan of the chest for screening purposes at [facility]. - Risks, benefits, and alternatives were discussed in detail and the patient agrees to proceed. - Risks discussed include but are not limited to: radiation exposure, anxiety during testing and while awaiting results, false negatives, false positives and possibility of additional intervention such as further imaging or surgical procedures for benign disease. - Benefits are obviously detection of lung cancer at an early stage which can lead to improved outcomes. - Discussed the importance of screening program compliance with adherence to yearly LDCT scan as scheduled - or sooner interval scans for personalized screening regimen. - Discussed follow up plan. Our office will send a letter discussing results and if needed set up phone call and office visit based on CT findings. - Patient educated on results categorization and the management decisions for suspicious findings potentially found on the screening LDCT scan. Any patient with a Lung RADS score of 3 or 4 will be reviewed by a multidisciplinary team at [facility] to form a plan of action in regards to scan findings. - If further work up is warranted for a suspicious lung finding this will be followed by the Lung Cancer Screening program in conjunction with the Thoracic Surgery Department at [facility]. - A copy of the office note and LDCT will be sent to the patient's PCP - as well as documentation on any associated further plans of care. - Incidental findings on LDCT are the PCP's responsibility. These findings are indicated with an S finding on the LDCT Assessment. A note discussing the findings will be sent to the PCP who is then responsible for further management. - All questions answered.? Coding Level of Care Code Lung Cancer Screening G0296 Diagnoses Nicotine dependence, cigarettes, uncomplicated F17.210
== END 2024-12-27 10:49 | disposition home or self-care (01) ==
LOC: HO.HPS 10:16
PROVIDERS: PCP Internal Medicine; Referring Provider Internal Medicine; Visit Provider Physician Assistant Medical
DX: F17.210 Nicotine dependence, cigarettes, uncomplicated (principal)
CPT/HCPCS: G0296

== ENCOUNTER 2024-12-27 10:34 | Outpatient (REF) | payer OTHER, SELFPAY ==
--- NOTE | ~2024-12-27 | CT_ITS ---
CLINICAL HISTORY: F17.210 - Nicotine dependence, cigarettes, uncomplicated CT lung cancer screening (LDCT) Comparison: CT/[place]/SR - CHEST WITHOUT CONTRAST [id number] - 11/21/17 19:17 EDT Technique: Axial CT images of the chest using low-dose technique. Referring provider counseled the patient on shared decision-making for LDCT screening. Additional counseling was provided on smoking cessation. Effective radiation dose total: DLP 36.5 mGycm, CTDIvol 1.1 mGy. Findings: There is paraseptal emphysema relatively unchanged. No significant pulmonary nodules are noted. There are no coronary artery calcifications. Limited upper abdomen: Unremarkable Other: None Impression: LungRADS 1: Negative exam. Continue annual screening with low dose Chest CT in 12 months. ##L1# Category 1: Normal; continue annual screening Category 2: Benign appearance or behavior, continue annual screening Category 3: Probably benign, [address] recommended Category 4A: Suspicious, [address] recommended; may consider PET/CT Category 4B: Suspicious, Additional diagnostics and/or tissue sampling recommended Category 4X: Suspicious, Additional diagnostics and/or tissue sampling recommended Category 0: Recalls (incomplete screen due to Incomplete coverage, Noise, Respiratory motion, Expiration, Obscured by acute abnormality) This document has been electronically signed by: Polo Dsouza MD on 12/28/2024 13:02:09
== END 2024-12-27 10:35 | disposition home or self-care (01) ==
LOC: HO.CT 10:34
PROVIDERS: Visit Provider Physician Assistant Medical
DX: Z12.2 Encounter for screening for malignant neoplasm of respiratory organs (principal); F17.210 Nicotine dependence, cigarettes, uncomplicated
CPT/HCPCS: 71271; G0296

== ENCOUNTER → 2024-12-27 10:36 | Outpatient (BNV) | payer OTHER, SELFPAY | PROVIDERS: Visit Provider Radiology Diagnostic Radiology | DX: F17.210 Nicotine dependence, cigarettes, uncomplicated (principal); Z12.2 Encounter for screening for malignant neoplasm of respiratory organs | CPT/HCPCS: 71271 ==

== ENCOUNTER 2025-03-07 09:51 | Outpatient (REF) | payer OTHER, SELFPAY ==
--- NOTE | ~2025-03-07 | XR_ITS ---
EXAMINATION: XR KNEE AP STANDING CLINICAL INFORMATION: M25.561 - Pain in right knee COMPARISON: 10/03/2024. TECHNIQUE: AP bilateral standing view of the knees was obtained. FINDINGS: RIGHT KNEE: No fracture or dislocation. Minimal medial compartment joint space narrowing. Normal alignment. There is a subchondral lucency in the medial femoral condyle, suggestive of osteochondral lesion. Normal soft tissues. LEFT KNEE: There appears to be a chronic depressed fracture of the medial tibial plateau with abundant subchondral sclerosis, cystic changes, and marginal osteophytic spurs. Fracture lines are still visible suggesting delayed or nonunion. There is heterotopic ossification adjacent to the medial femoral condyle and medial tibial plateau. There is subtle chondrocalcinosis in the lateral compartment. There are mild lateral osteophytes. There is spurring of the tibial spines. XR/XR knee standing BI IMPRESSION: 1. RIGHT knee demonstrating a probable osteochondral lesion in the medial femoral condyle. 2. Left knee demonstrating severe posttraumatic arthrosis of the medial compartment with what appears to be a depressed tibial plateau fracture, subacute to chronic in appearance with possible nonunion. Would recommend correlating with patient traumatic history. Electronically signed by: Ruben Meier MD 03/07/2025 10:26 AM EDT
== END 2025-03-07 09:52 | disposition home or self-care (01) ==
LOC: HO.HOSX 09:51
PROVIDERS: Visit Provider Physician Assistant
DX: M17.32 Unilateral post-traumatic osteoarthritis, left knee (principal); M25.561 Pain in right knee; M25.562 Pain in left knee
CPT/HCPCS: 73565; 99202

== ENCOUNTER 2025-03-07 10:10 | Outpatient (AMB) | payer OTHER, SELFPAY ==
--- NOTE | 2025-03-07 10:26 | MHC.OFFVIS ---
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 Patient was seen by PCP, who referred to orthopedics for left knee OA. Patient reports his pain has been present for a while. He was hoping his pain would go away however his pain had gotten worse. He mentions that he twisted his knee after he had an ankle surgery back in 2022. His discomfort is located at the top of his knee, medial and lateral aspect of knee. States tender to the touch. Finds some support with knee bracing. He uses a cane with ambulation. Finds little relief with Tylenol and Advil. No previous treatment. 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 He e states he was using a scooter 7 months ago and twisted the left knee . Ever since then he has had worsening pain in the left knee which is limiting his ability to perform daily activities. States he is unable to walk long distances. He ambulates with a cane. He had right ankle surgery 2022 He smokes 5-8 cigarettes a day, drinks a beer on occasion. Smokes marijuana. He has been on methadone for a few years now with a history of opiate use and occasionally snorting heroin. States he has been clean from substance abuse for a few years. [facility] Medical History (Updated 03/07/25 @ 10:54 by Nohelia Gomes PA-C) Nicotine dependence, cigarettes, uncomplicated Psoriasis Acute eczema Surgical History (Updated 03/07/25 @ 10:29 by Ольга Figueroa [facility]) History of foot surgery Family History Mother No problems noted. Father No problems noted. Social History (Updated 12/27/24 @ 10:23 by Kristi Villarreal PA-C) Housing: House Alcohol intake: current Alcohol intake frequency: does not drink Patient Tobacco Use Status: Current everyday Tobacco user Tobacco use type: Cigarette Cigarette Packs Per Day: 0.5 Cigarettes Per Day: 10 Years Smoked: (onset 14yo, 1/2ppd x 40yrs, 20pyh) e-Cigarette/Vaping Use: Never Used Second Hand Smoke Exposure: Yes service: No Current occupational status: disabled Cognitive needs: Yes (croches) Hearing needs: No Vision needs: Yes (Reading glasses) Review of Systems Const All systems reviewed & are unremarkable except as noted in HPI and below Physical Exam Vital Signs: BMI result Body Mass Index 26.6 Const General: cooperative and no acute distress Orientation/consciousness: patient oriented x3 Resp Effort & Inspection: normal respiratory effort and able to speak in complete sentences Cardio Peripheral pulses: Peripheral pulses 2+ throughout Neuro General: patient oriented x3 Extrem Other: Left knee with varus alignment. ROM 10-100. Significant tenderness to palpation over the medial joint line. Calf is supple and nontender neurovascularly intact. Results Reviewed Results Reviewed: X-rays of the left knee obtained in the office today and reviewed by me show severe posttraumatic arthritis through the left knee with medial joint collapse Assessment & Plan Assessment & Plan (1) Post-traumatic osteoarthritis of left knee: Code(s): M17.32 - Unilateral post-traumatic osteoarthritis, left knee Category: Medical Plan: Dr. Rose was available to see the patient with me today. We discussed the extent of his arthritis in the options available which would include a total knee arthroplasty. Dr. Rose explained the extent of the procedure but also the risks associated with the surgery and because the patient is a smoker that does put him at increased risk of complications such as blood clot/PE/wound and or bone healing complications to name a few. We encouraged the patient to stop smoking. We will have him see his primary care doctor for medical clearance. Patient states he does live with his brother and he does have a good support system heel could bring him to appointments and help around the house. At this time we will have the patient meet up with Nata to discuss a time for surgery and proceed with the following clearance appointments for a left total knee arthroplasty. Patient is content with this plan. Orders: Orders XR knee standing BI Today M25.561 - Pain in right knee, M25.562 - Pain in left knee CT knee LT wo IV con Today M17.32 - Unilateral post-traumatic osteoarthritis, left knee Coding Level of Care Code New Pt Level 4 (83629) Complex EM visit Add On G2211 Diagnoses Post-traumatic osteoarthritis of left knee M17.32
[2025-03-07 10:32] VITALS: BMI 26.6
== END 2025-03-07 11:02 | disposition home or self-care (01) ==
LOC: HO.HOS 10:11
PROVIDERS: Visit Provider Physician Assistant
DX: M17.32 Unilateral post-traumatic osteoarthritis, left knee (principal)
CPT/HCPCS: 99204

== ENCOUNTER → 2025-03-07 10:12 | Outpatient (BNV) | payer OTHER, SELFPAY | PROVIDERS: Visit Provider Radiology Diagnostic Radiology | DX: M25.561 Pain in right knee (principal) | CPT/HCPCS: 73565 ==

== ENCOUNTER 2025-03-17 09:37 | Outpatient (REF) | payer OTHER, SELFPAY ==
--- NOTE | ~2025-03-17 | CT_ITS ---
EXAMINATION: CT KNEE WITHOUT CONTRAST, LEFT CLINICAL INFORMATION: M17.32 - Unilateral post-traumatic osteoarthritis, left knee. Preoperative planning COMPARISON: March 07 and December 03, 2024, x-rays of the left knee TECHNIQUE: DLP: 508 mGY*cm Axial CT was performed through the left hip, knee, and ankle This CT examination was performed using dose optimization techniques as appropriate, variously including the following: *Automated exposure control *Adjustment of mA and/or kV according to patient size (this includes techniques or standardized protocols for targeted exams where dose is matched to indication/reason for exam; i.e. extremities or head) *Use of iterative reconstruction technique FINDINGS: Left hip: Undulating bands of sclerosis and lucency extending across the femoral head from the fovea to the junction of the femoral head and neck centrally and laterally. The joint spaces preserved. There is a small marginal osteophyte involving the fovea, the acetabular roof and minute osteophytes involving the margin of the femoral head. Left knee: There is generalized osteopenia. Again seen is chronic deformity from an impacted fracture of the medial tibial plateau with 4 mm step-off at the articular surface. Fracture line extends to the base of the medial tibial spine. There is mixed sclerosis and persistent lucency. There are spicules of bridging bone across the fracture, more so posteriorly than anteriorly. Along the medial margin of the fracture, there is sclerosis with partial nonunion. There is moderate to severe subchondral sclerosis in the femoral condyles, lateral greater than medial. There is mild to moderate narrowing of the lateral joint space. There are tricompartmental marginal osteophytes. There is a joint effusion. There are numerous ossified bodies in the suprapatellar pouch. Left ankle: There is sclerosis and subchondral cystic change in the tibial plafond and. There are serpentine bands of sclerosis in the tibial metaphysis and metadiaphysis coronary measuring 11 x 24 mm (transverse by CC) possibly representing osteonecrosis. There is also degenerative cystic change in the talar dome. There are areas of groundglass density with serpentine bands of sclerotic margins in the posterior dome, larger than in the anterior dome, also raising concern for osteonecrosis. There is a chronic fracture involving the anterior lateral aspect of calcaneus with minimal evidence of bridging bone involving the anterior process of calcaneus extending into the cephalad aspect of the calcaneal cuboid joint and to the margin of the anterior subtalar joint. Soft tissues are grossly intact. CT/CT knee LT wo IV con IMPRESSION: Left hip: There are bands of sclerosis and lucency across the femoral neck extending to the fovea that could be related to remote trauma versus osteonecrosis. Left knee: Severe posttraumatic osteoarthritis with medial to plateau depressed fracture with 4 mm step-off and partial nonunion. There is a joint effusion and numerous moderate to large ossified bodies in the suprapatellar pouch. Left ankle: Moderate degenerative change with suspected areas of osteonecrosis in the tibial metadiaphysis and 2 foci involving subchondral bone in the talar dome. Electronically signed by: Darrell Roca MD 03/17/2025 10:54 AM EDT
== END 2025-03-17 09:38 | disposition home or self-care (01) ==
LOC: HO.CT 09:37
PROVIDERS: Visit Provider Physician Assistant
DX: M17.32 Unilateral post-traumatic osteoarthritis, left knee (principal)
CPT/HCPCS: 73700

== ENCOUNTER → 2025-03-17 09:39 | Outpatient (BNV) | payer OTHER, SELFPAY | PROVIDERS: Visit Provider Radiology Diagnostic Radiology | DX: M17.32 Unilateral post-traumatic osteoarthritis, left knee (principal); M19.072 Primary osteoarthritis, left ankle and foot | CPT/HCPCS: 73700 ==

== ENCOUNTER 2025-04-22 13:25 | Outpatient (AMB) | payer OTHER, SELFPAY ==
[2025-04-22 13:29] VITALS: BP 102/58; PULSE 101; RESP 18; TEMP 36.2; O2SAT 98; BMI 25.7
--- NOTE | 2025-04-22 13:29 | MHC.PC.OV ---
Vital Signs 04/22/25 13:29 Height 5 ft 11 in Weight 184 lb 2 oz BMI 25.7 BP 102/58 L Blood Pressure Location Lt brachial Position Sitting Respiration 18 Pulse 101 H Pulse Source Pulse Oximeter Temp 97.1 F Temp Source Temporal Artery Scan Pulse Oximetry (%) 98 Oxygen Delivery Method Room Air Intake Visit Reasons: L ASHLEY w/Dr. 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 Rose 06/10/25 HPI Details The patient is a 54-year-old male presenting for a preoperative evaluation for upcoming total left knee replacement surgery. The patient has a history of ankle surgery and expresses anxiety about anesthesia due to a fear of intraoperative awareness. However, denies any issue with anesthesia in the past. He has not had any follow-up laboratory tests since 2020, which are necessary for surgical clearance. Surgery: Total left knee arthroplasty Date: 06/10/2025 Surgeon/location: Dr. Rose at [facility] orthopedics, [facility] The patient is currently smoking approximately four to five cigarettes a day, a reduction from a previous habit of a pack a day. He acknowledges the difficulty in quitting smoking but is making efforts to reduce his intake. The patient denies any postoperative hypothermia or clotting disorder and he is not on any anticoagulants. Patient denies chest pain, shortness of breath, heart palpitation or dizziness Denies abdominal pain change in bowel habits Denies any urinary symptoms a1c 5.3% done in office ON LICENSE OF [facility] Medical History Nicotine dependence, cigarettes, uncomplicated Psoriasis Acute eczema Surgical History History of foot surgery Family History Mother No problems noted. Father No problems noted. Social History Housing: House Alcohol intake: current Alcohol intake frequency: does not drink Patient Tobacco Use Status: Current everyday Tobacco user Tobacco use type: Cigarette Cigarette Packs Per Day: 0.5 Cigarettes Per Day: 10 Years Smoked: (onset 14yo, 1/2ppd x 40yrs, 20pyh) Packs Per Year: 0 Packs per year/per ci.00 e-Cigarette/Vaping Use: Never Used Second Hand Smoke Exposure: Yes service: No Current occupational status: disabled Cognitive needs: Yes (croches) Hearing needs: No Vision needs: Yes (Reading glasses) Questionnaire Thrive Questionnaire Date Thrive assessed: 10/29/24 I am a: Patient What is your living situation today?: I have a steady place to live Within the past 12 months, did the food you bought not last and you didn't have the money to get more?: Never true Within the past 12 months, did you worry whether your food would run out before you got money to buy more?: Never true Do you have trouble paying for medicines?: No Do you have trouble getting transportation to medical appointments?: Yes Do you have trouble paying your heating and electricity bill?: No Do you have trouble taking care of your child, family member or friend?: No Do you have trouble with day-to-day activities such as bathing, preparing meals, shopping, managing finances, etc.?: No Are you currently unemployed and looking for a job?: Yes Are you interested in more education?: No Please select the resources that you would like help with: None Currently or been in a relationship where the following occur: No concerns reported THRIVE Score: 1 DEDRICK-7 AMB Questionnaire DEDRICK-7 Date DEDRICK - 7 assessed: 10/29/24 Source: Developed by Drs. Agapito Emery, Tammy Kang, Ervin Thompson and colleagues, with an educational cherri from [employer]. Review of Systems Const Denies headache(s) Eyes Denies loss of vision ENT Denies vertigo, Denies dizziness, Denies headache(s) and Denies sore throat Card Denies chest pain, Denies leg edema and Denies lightheadedness Resp Denies cough, Denies hemoptysis and Denies wheezing GI Denies abdominal pain, Denies melena, Denies constipation, Denies diarrhea and Denies vomiting Denies dysuria, Denies urinary frequency and Denies urinary urgency Musc Reports arthralgias (left knee), Reports joint swelling (left knee), Denies numbness and Denies tingling Neuro Denies Abnormal speech present, Denies behavioral changes, Denies vertigo, Denies dizziness, Denies headache(s), Denies loss of vision, Denies memory loss, Denies numbness and Denies tingling Psych Denies anxiety, Denies behavioral changes, Denies depression, Denies memory loss and Denies panic attacks Atilio/Lymph Denies easy bleeding and Denies easy bruising Aller/Immun Denies wheezing Physical exam (Primary Care) Vital Signs: Last Vital Signs Temp 97.1 F 04/22/25 13:29 Pulse 101 H 04/22/25 13:29 Resp 18 04/22/25 13:29 BP 102/58 L 04/22/25 13:29 Pulse Ox 98 04/22/25 13:29 Oxygen Delivery Method Room Air 04/22/25 13:29 BMI result Body Mass Index 25.7 Tobacco/Smoking Status: Tobacco use Status Tobacco use date assessed 04/22/25 04/22/25 13:33 Patient Tobacco Use Status Current everyday Tobacco 04/22/25 13:33 Tobacco use type Cigarette 04/22/25 13:33 e-Cigarette/Vaping Use Never Used 04/22/25 13:33 Thrive Assessment: Date of Thrive Assessment Date Thrive assessed 10/29/24 04/22/25 13:33 Currently or been in a relationship where the following occur: No concerns reported Const General: healthy appearing, no acute distress, alert and awake Nutritional Appearance: well nourished Orientation/consciousness: oriented to person, oriented to place and oriented to time HENMT Ears: TM's normal bilaterally General nose exam: Normal nasal mucous membranes and turbinates present Teeth and gingiva: other (no teeth) Eyes Conjunctivae: conjunctivae normal Sclerae: sclerae normal Pupils: Equal, round and reactive pupils present Neck Neck: Yes no lymphadenopathy and Yes no JVD Thyroid: Thyroid normal Carotids: no bruits Resp Effort & Inspection: normal respiratory effort and not tachypneic Auscultation: no crackles, no rales, no rhonchi and no wheezes Cardio Rate: regular rate Rhythm: regular rhythm Heart sounds: S1 normal heart sound present, S2 normal heart sound present, no murmurs and normal S1 and S2 GI Palpation (GI): Soft to palpation, nontender, no hepatomegaly and no splenomegaly Auscultation: normal bowel sounds Skin General skin exam: no rashes or lesions noted and dry skin Neuro General: oriented to person, oriented to place and oriented to time Cranial nerves: Yes Equal, round and reactive pupils present Speech: No Abnormal speech present Gait exam (Neuro): Normal gait present Motor exam (neuro): no tremor noted Extrem Right upper extremity: full ROM Left upper extremity: full ROM Right lower extremity: full ROM; no edema Left lower extremity: full ROM and knee Details: tenderness and swelling Psych Mental Status: mental status grossly normal Speech and movement: Normal speech and movement present Affect: normal affect Attitude: cooperative Thought process: Normal thought process present Coding Level of Care Code Est Pt Level 4 (96855) Diagnoses Pre-operative clearance Z01.818 Nicotine dependence, cigarettes, uncomplicated F17.210 Primary osteoarthritis of left knee M17.12 Osteoarthritis type: primary Abnormal glucose level R73.09 Time Spent (min) 39 Assessment & Plan Assessment & Plan (1) Pre-operative clearance: Code(s): Z01.818 - Encounter for other preprocedural examination Category: Medical Plan: Regarding preop clearance, the patient is at acceptable risk for proposed surgery, and will be cleared once the patient complete ordered labs an EKG that are within reasonable limits. Reviewed with the patient that no surgery is completely free of risk and that this examination is to assist the surgeon in reviewing informed consent. (2) Nicotine dependence, cigarettes, uncomplicated: Comment: (onset 14yo, 1/2ppd x 40yrs, 20pyh) Code(s): F17.210 - Nicotine dependence, cigarettes, uncomplicated Category: Medical Plan: Patient has been cutting back on the amount of cigarettes he smokes. Currently only smoking an average of 5 cigarettes daily.The patient is advised to continue efforts to reduce smoking to minimize surgical risks, including potential complications such as thrombosis. (3) Osteoarthritis of left knee: Code(s): M17.12 - Unilateral primary osteoarthritis, left knee Category: Medical Qualifiers: Osteoarthritis type: primary Qualified Code(s): M17.12 - Unilateral primary osteoarthritis, left knee Plan: Left knee x-ray on 03/07/2025 showed severe posttraumatic arthrosis of the medial compartment with what appears to be a depressed tibial plateau fracture, subacute to chronic in appearance with possible nonunion. Patient has a planned total left knee arthroplasty with Dr. Rose on 06/10/2025 (4) Abnormal glucose level: Code(s): R73.09 - Other abnormal glucose Category: Medical Plan: Patient for history of elevated fasting glucose. A1c done in office today was 5.3%. Reinforced low sugar/carbohydrate diet and activity as tolerated Orders: Orders Prothrombin Time INR Today Z01.818 - Encounter for other preprocedural examination AMB Hemoglobin A1c Today Z13.9 - Encounter for screening, unspecified ECG 12 lead EKG Today Z01.818 - Encounter for other preprocedural examination
== END 2025-04-22 13:58 | disposition home or self-care (01) ==
LOC: HO.HMCH 13:26
DX: Z01.818 Encounter for other preprocedural examination (principal); F17.210 Nicotine dependence, cigarettes, uncomplicated; M17.12 Unilateral primary osteoarthritis, left knee; R73.09 Other abnormal glucose

== ENCOUNTER → 2025-04-22 13:25 | Outpatient (BNVA) | payer OTHER, SELFPAY | DX: Z01.818 Encounter for other preprocedural examination (principal); R73.09 Other abnormal glucose; M17.12 Unilateral primary osteoarthritis, left knee; F17.210 Nicotine dependence, cigarettes, uncomplicated | CPT/HCPCS: 99212 ==

== ENCOUNTER 2025-05-20 | Outpatient (REF) | payer OTHER, SELFPAY ==
--- NOTE | 2025-05-20 10:16 | ECG_ITS ---
Test Reason : PREOP Blood Pressure : */* mmHG Vent. Rate : 79 BPM Atrial Rate : 79 BPM P-R Int : 154 ms QRS Dur : 88 ms QT Int : 380 ms P-R-T Axes : 60 55 84 degrees QTcB Int : 435 ms Normal sinus rhythm ST & T wave abnormality, consider inferior ischemia ST & T wave abnormality, consider anterolateral ischemia Abnormal ECG No previous ECGs available Referred By: Ramakrishna Tomlin Electronically Signed By: ROSA ARREOLA MD
[2025-05-20 10:31] LABS: MANUAL DIFF FLAG NO
[2025-05-20 10:53] LABS: Hematocrit 24.0 % (42.0-52.0); Hemoglobin 8.3 g/dl (14.0-18.0); Imm Gran Abs Auto 0.09 X10*3/uL (0.00-0.03); Imm Gran Pct Auto 0.9 % (0.0-0.4); Lymphocytes Absolute Auto 2.0 X10*3/uL (1.2-4.9); Mean Corpuscular HGB Conc 34.6 g/dl (31.0-36.0); Mean Corpuscular Hemoglobin 47.7 pg (27.0-33.0); NRBC Abs Auto 0.030 X10*3/uL (0.0-0.012); NRBC Pct Auto 0.3 /100WBC (0.0-0.2); Platelet Count 156 X10*3/uL (160-400); Red Blood Count 1.74 X10*6/uL (4.60-5.80); White Blood Count 9.8 X10*3/uL (4.8-10.8)
[2025-05-20 10:54] LABS: Mean Corpuscular Volume 137.9 fL (80.0-98.0)
[2025-05-20 10:56] LABS: INTERNATIONAL NORM RATIO 1.0 (0.9-1.1); Prothrombin Time 12.6 SEC (11.2-13.5)
[2025-05-20 11:32] LABS: Alanine Aminotransferase 19 U/L (0-40); Albumin Level 3.9 g/dL (3.5-5.0); Alkaline Phosphatase 123 U/L (39-117); Anion Gap 13 (12-20); Aspartate Amino Transferase 42 U/L (5-37); Blood Urea Nitrogen 18 mg/dL (9-16); Calcium 8.1 mg/dL (8.4-10.2); Carbon Dioxide 18 mmol/L (22-29); Chloride 105 mmol/L (96-108); Cholesterol 95 mg/dL (<200); Estimated Glomerular Filt Rate 32; HDL Cholesterol 42 mg/dL (>40); Potassium 3.4 mmol/L (3.3-5.1); Sodium 133 mmol/L (135-145); Total Protein 7.0 g/dL (6.5-8.0); Triglycerides 94 mg/dL (<150)
[2025-05-20 11:33] LABS: Appearance Urine Clear; Glucose Urine UA Negative (Negative); PH 6.0 (5.0-9.0); Specific Gravity - Urine <= 1.005 (1.005-1.025); UMIC TRIGGER UACC YES
[2025-05-28 11:44] VITALS: BMI 23.7
== END 2025-05-20 00:01 ==
LOC: HO.PAT
PROVIDERS: Visit Provider Orthopaedic Surgery
DX: Z00.00 Encounter for general adult medical examination without abnormal findings (principal); Z01.810 Encounter for preprocedural cardiovascular examination; Z01.818 Encounter for other preprocedural examination; M17.32 Unilateral post-traumatic osteoarthritis, left knee; M25.562 Pain in left knee; M25.462 Effusion, left knee
CPT/HCPCS: 36415; 80053; 80061; 81001; 82306; 84443; 85025; 85610; 93005

== ENCOUNTER → 2025-05-20 10:16 | Outpatient (BNV) | payer OTHER, SELFPAY | PROVIDERS: Visit Provider Internal Medicine Cardiovascular Disease | DX: Z01.810 Encounter for preprocedural cardiovascular examination (principal) | CPT/HCPCS: 93010 ==